=== PATIENT | female | born 1930 | race African-American/Black ===

== ENCOUNTER 2016-11-17 18:30 | Inpatient (IN) | payer MEDICARE, MEDICAID ==
[~2016-11-17] VITALS: Ht 160 cm; Wt 49.9 kg
[~2016-11-17 18:30] MED LIST: AMLO1CAP2 PO; ASPI-1159 PO; BUDE3CAP8 PO; ESOM40CA PO; MAGN400C PO; MEGE400O PO; TEMA15CA PO
[2016-11-17 20:00] VITALS: BP_SYST 138; BP_DIAS 70; BP_DIAS 77
[2016-11-17] MEDS ORDERED: GUAIFENESIN/CODEINE 100-10MG/5ML UDC PO PRN (20:00)
[2016-11-17] MEDS: POLYETHYLENE GLYCOL 3350 (17GM) 1 DOSE PACK PO SCH (21:00)
[2016-11-17] MEDS ORDERED: CEFTRIAXONE 1 G PREMIX 50 ML IV SCH (22:00)
[2016-11-17] MEDS ORDERED: PHENOL/SODIUM PHENOLATE 1.4% SRPAY 177ML MM PRN (22:00)
[2016-11-17] MEDS: FLUTICASONE PROPIONATE 50MCG/SPRAY BOTTLE BOTHNSTRLS SCH (22:32)
[2016-11-18] MEDS: ACETYLCYSTEINE 100MG/ML 10% VIAL 4ML INH SCH ×2 (00:21→09:30)
[2016-11-18] MEDS: IPRATROPIUM/ALBUTEROL 0.5-3(2.5)MG/3ML NEB HHN SCH ×6 (00:22→19:39)
[2016-11-18] MEDS: TEMAZEPAM 15MG CAPSULE PO PRN (01:16)
[2016-11-18 08:00] VITALS: BP 122/72
[2016-11-18] MEDS ORDERED: FAMOTIDINE 20MG/2ML VIAL IV SCH (09:00)
[2016-11-18] MEDS ORDERED: SILVER SULFADIAZINE 1% CREAM 25GM TOP SCH (09:00)
[2016-11-18] MEDS: DOCUSATE SODIUM 100MG CAPSULE PO SCH ×2 (09:19→17:13)
[2016-11-18] MEDS: BENAZEPRIL 20MG TABLET PO SCH (09:20)
[2016-11-18] MEDS: ASPIRIN 81MG EC TABLET PO SCH (09:20)
[2016-11-18] MEDS: AMLODIPINE 10MG TABLET PO SCH (09:20)
[2016-11-18] MEDS: MAGNESIUM OXIDE 400MG TABLET PO SCH ×2 (09:20→17:13)
[2016-11-18] MEDS: ENOXAPARIN 30MG/0.3ML SYR SUBCUT SCH (09:21)
[2016-11-18] MEDS: PREDNISONE 5MG TABLET PO SCH (09:21)
[2016-11-18] MEDS: NICOTINE 14MG PATCH TD SCH (09:22)
[2016-11-18] MEDS ORDERED: MAGNESIUM/ALUMINUM HYDROXIDE/SIMETHICONE 30ML UDC PO PRN (09:30)
[2016-11-18] MEDS: HYDROCODONE/ACETAMINOPHEN 5/325MG TABLET PO PRN ×2 (10:18→20:10)
[2016-11-18] MEDS: FLUTICASONE PROPIONATE 50MCG/SPRAY BOTTLE BOTHNSTRLS SCH ×2 (10:54→20:11)
[2016-11-18] MEDS: LEVOFLOXACIN 250MG TABLET PO SCH (10:59)
[2016-11-18] MEDS: PANTOPRAZOLE 40MG DR TABLET PO SCH (12:08)
[2016-11-18] MEDS: BUDESONIDE 3 MG PO SCH ×2 (12:08→20:12)
[2016-11-18 20:00] VITALS: BP 138/70
[2016-11-18] MEDS ORDERED: PANTOPRAZOLE 40MG DR TABLET PO SCH (21:00)
[2016-11-19] MEDS: IPRATROPIUM/ALBUTEROL 0.5-3(2.5)MG/3ML NEB HHN SCH ×5 (04:24→16:16)
[2016-11-19] MEDS: BUDESONIDE 3 MG PO SCH ×2 (06:15→17:25)
[2016-11-19] MEDS: POLYETHYLENE GLYCOL 3350 (17GM) 1 DOSE PACK PO SCH ×2 (06:16→22:18)
[2016-11-19] MEDS: PANTOPRAZOLE 40MG DR TABLET PO SCH (06:16)
[2016-11-19 07:07] LABS: BASOPHILS % 0.6 % (0.0-2.0); EOSINOPHILS % 1.1 % (0.0-5.0); HEMATOCRIT. 39.6 % (36.0-48.0); HEMOGLOBIN. 13.4 g/dL (12.0-16.0); LYMPHOCYTES % 20.5 % (20.0-50.0); MEAN CORPUSCULAR HEMOGLOBIN 29.3 pg (28.0-32.0); MEAN CORPUSCULAR VOLUME 86.6 fL (81.0-99.0); MEAN PLATELET VOLUME 7.6 fl (7.4-10.4); MONOCYTES % 11.3 % (2.0-8.0); NEUTROPHILS % 66.5 % (40.0-76.0); PLATELET 229 x1000/uL (130-400); RED BLOOD CELL COUNT 4.58 mill/uL (4.2-5.4); RED CELL DISTRIBUTION WIDTH 14.8 % (11.6-14.6)
[2016-11-19] MEDS: ACETYLCYSTEINE 100MG/ML 10% VIAL 4ML INH SCH ×3 (07:27→16:16)
[2016-11-19 08:00] VITALS: BP 118/73
[2016-11-19] MEDS ORDERED: MAGNESIUM/ALUMINUM HYDROXIDE/SIMETHICONE 30ML UDC PO NR (08:15)
[2016-11-19] MEDS ORDERED: MAGNESIUM/ALUMINUM HYDROXIDE/SIMETHICONE 30ML UDC PO PRN (08:15)
[2016-11-19] MEDS: BENAZEPRIL 20MG TABLET PO SCH (08:19)
[2016-11-19] MEDS: AMLODIPINE 10MG TABLET PO SCH (08:20)
[2016-11-19] MEDS: PREDNISONE 5MG TABLET PO SCH (08:20)
[2016-11-19] MEDS: MAGNESIUM OXIDE 400MG TABLET PO SCH ×2 (08:20→17:25)
[2016-11-19] MEDS: ASPIRIN 81MG EC TABLET PO SCH (08:20)
[2016-11-19] MEDS: DOCUSATE SODIUM 100MG CAPSULE PO SCH ×2 (08:20→17:00)
[2016-11-19] MEDS: ENOXAPARIN 30MG/0.3ML SYR SUBCUT SCH (08:21)
[2016-11-19] MEDS: NICOTINE 14MG PATCH TD SCH (08:22)
[2016-11-19] MEDS: FLUTICASONE PROPIONATE 50MCG/SPRAY BOTTLE BOTHNSTRLS SCH ×2 (08:51→22:19)
[2016-11-19] MEDS: LIDOCAINE 5% PATCH TOP SCH ×2 (08:52→08:53)
[2016-11-19] MEDS: HYDROCODONE/ACETAMINOPHEN 5/325MG TABLET PO PRN (08:54)
[2016-11-19] MEDS ORDERED: LEVOFLOXACIN 250MG TABLET PO SCH (11:00)
[2016-11-19] MEDS: LEVOFLOXACIN 250MG TABLET PO SCH (11:38)
[2016-11-19] MEDS ORDERED: HYDROCODONE/ACETAMINOPHEN 5/325MG TABLET PO PRN (12:00)
[2016-11-19] MEDS ORDERED: MORPHINE SULFATE 2 MG/ML CPJ (NOT FOR IM USE) IV PRN (12:15)
[2016-11-19] MEDS ORDERED: MORPHINE SULFATE 2 MG/ML CPJ (NOT FOR IM USE) SQ PRN ×2 (12:45→16:15)
[2016-11-19] MEDS ORDERED: GUAIFENESIN/CODEINE 100-10MG/5ML UDC PO PRN (14:00)
[2016-11-19 20:00] VITALS: BP 153/91
[2016-11-19] MEDS: TEMAZEPAM 15MG CAPSULE PO PRN (23:05)
[2016-11-20] MEDS: ACETYLCYSTEINE 100MG/ML 10% VIAL 4ML INH SCH ×3 (00:56→17:15)
[2016-11-20] MEDS: IPRATROPIUM/ALBUTEROL 0.5-3(2.5)MG/3ML NEB HHN SCH ×5 (00:58→20:50)
[2016-11-20] MEDS: PANTOPRAZOLE 40MG DR TABLET PO SCH (05:52)
[2016-11-20] MEDS: BUDESONIDE 3 MG PO SCH ×2 (05:53→17:07)
[2016-11-20 08:00] VITALS: BP 132/71
[2016-11-20] MEDS: PREDNISONE 5MG TABLET PO SCH (08:15)
[2016-11-20] MEDS: BENAZEPRIL 20MG TABLET PO SCH (08:15)
[2016-11-20] MEDS: DOCUSATE SODIUM 100MG CAPSULE PO SCH ×3 (08:15→17:00)
[2016-11-20] MEDS: MAGNESIUM OXIDE 400MG TABLET PO SCH ×2 (08:16→17:04)
[2016-11-20] MEDS: AMLODIPINE 10MG TABLET PO SCH (08:16)
[2016-11-20] MEDS: ASPIRIN 81MG EC TABLET PO SCH (08:16)
[2016-11-20] MEDS: HYDROCODONE/ACETAMINOPHEN 5/325MG TABLET PO PRN ×2 (08:17→17:05)
[2016-11-20] MEDS: LIDOCAINE 5% PATCH TOP SCH ×2 (08:18)
[2016-11-20] MEDS: SILVER SULFADIAZINE 1% CREAM 50GM TOP SCH (08:19)
[2016-11-20] MEDS: FLUTICASONE PROPIONATE 50MCG/SPRAY BOTTLE BOTHNSTRLS SCH ×2 (08:19→20:42)
[2016-11-20] MEDS: NICOTINE 14MG PATCH TD SCH ×2 (08:19→08:34)
[2016-11-20] MEDS: ENOXAPARIN 30MG/0.3ML SYR SUBCUT SCH (08:20)
[2016-11-20] MEDS: LEVOFLOXACIN 250MG TABLET PO SCH (11:18)
[2016-11-20] MEDS: IPRATROPIUM/ALBUTEROL 0.5-3(2.5)MG/3ML NEB HHN PRN ×2 (17:15→20:56)
[2016-11-20 20:00] VITALS: BP 149/93
[2016-11-20] MEDS: POLYETHYLENE GLYCOL 3350 (17GM) 1 DOSE PACK PO SCH (20:45)
[2016-11-20] MEDS: TEMAZEPAM 15MG CAPSULE PO PRN (23:08)
[2016-11-21] MEDS: IPRATROPIUM/ALBUTEROL 0.5-3(2.5)MG/3ML NEB HHN SCH ×4 (00:19→20:48)
[2016-11-21] MEDS: ACETYLCYSTEINE 100MG/ML 10% VIAL 4ML INH SCH ×3 (00:19→13:21)
[2016-11-21] MEDS: BUDESONIDE 3 MG PO SCH ×2 (05:58→17:08)
[2016-11-21] MEDS: PANTOPRAZOLE 40MG DR TABLET PO SCH (06:00)
[2016-11-21] MEDS: HYDROCODONE/ACETAMINOPHEN 5/325MG TABLET PO PRN ×2 (06:01→14:02)
[2016-11-21 08:00] VITALS: BP 123/70
[2016-11-21] MEDS: DOCUSATE SODIUM 100MG CAPSULE PO SCH ×2 (08:22→17:08)
[2016-11-21] MEDS: ASPIRIN 81MG EC TABLET PO SCH (08:22)
[2016-11-21] MEDS: BENAZEPRIL 20MG TABLET PO SCH (08:22)
[2016-11-21] MEDS: MAGNESIUM OXIDE 400MG TABLET PO SCH ×2 (08:22→17:08)
[2016-11-21] MEDS: AMLODIPINE 10MG TABLET PO SCH (08:23)
[2016-11-21] MEDS: FLUTICASONE PROPIONATE 50MCG/SPRAY BOTTLE BOTHNSTRLS SCH ×2 (08:23→21:14)
[2016-11-21] MEDS: ENOXAPARIN 30MG/0.3ML SYR SUBCUT SCH (08:23)
[2016-11-21] MEDS: LIDOCAINE 5% PATCH TOP SCH ×2 (08:24)
[2016-11-21] MEDS: NICOTINE 14MG PATCH TD SCH (09:00)
[2016-11-21] MEDS: DULOXETINE HCL 20MG DR CAPSULE PO SCH (11:29)
[2016-11-21] MEDS: SILVER SULFADIAZINE 1% CREAM 50GM TOP SCH (11:29)
[2016-11-21] MEDS: LEVOFLOXACIN 250MG TABLET PO SCH (11:29)
[2016-11-21 20:00] VITALS: BP 118/59
[2016-11-21] MEDS: POLYETHYLENE GLYCOL 3350 (17GM) 1 DOSE PACK PO SCH (21:00)
[2016-11-21] MEDS: TEMAZEPAM 15MG CAPSULE PO PRN (23:18)
[2016-11-22] MEDS: IPRATROPIUM/ALBUTEROL 0.5-3(2.5)MG/3ML NEB HHN SCH ×5 (01:06→20:51)
[2016-11-22] MEDS: ACETYLCYSTEINE 100MG/ML 10% VIAL 4ML INH SCH ×4 (01:06→20:54)
[2016-11-22] MEDS: BUDESONIDE 3 MG PO SCH ×2 (06:00→18:00)
[2016-11-22] MEDS: PANTOPRAZOLE 40MG DR TABLET PO SCH (06:26)
[2016-11-22 08:00] VITALS: BP 127/63
[2016-11-22] MEDS: HYDROCODONE/ACETAMINOPHEN 5/325MG TABLET PO PRN ×2 (08:57→19:36)
[2016-11-22] MEDS: DOCUSATE SODIUM 100MG CAPSULE PO SCH ×2 (08:57→17:00)
[2016-11-22] MEDS: DULOXETINE HCL 20MG DR CAPSULE PO SCH ×2 (08:57→09:00)
[2016-11-22] MEDS: MAGNESIUM OXIDE 400MG TABLET PO SCH ×2 (08:57→18:03)
[2016-11-22] MEDS: ENOXAPARIN 30MG/0.3ML SYR SUBCUT SCH (08:58)
[2016-11-22] MEDS: FLUTICASONE PROPIONATE 50MCG/SPRAY BOTTLE BOTHNSTRLS SCH (08:58)
[2016-11-22] MEDS: ASPIRIN 81MG EC TABLET PO SCH (08:58)
[2016-11-22] MEDS: NICOTINE 14MG PATCH TD SCH ×2 (08:59→09:00)
[2016-11-22] MEDS: LIDOCAINE 5% PATCH TOP SCH ×2 (08:59)
[2016-11-22] MEDS: BENAZEPRIL 20MG TABLET PO SCH (09:00)
[2016-11-22] MEDS: AMLODIPINE 10MG TABLET PO SCH (09:00)
[2016-11-22] MEDS: LEVOFLOXACIN 250MG TABLET PO SCH (11:27)
[2016-11-22] MEDS: SILVER SULFADIAZINE 1% CREAM 50GM TOP SCH (15:37)
[2016-11-22 20:00] VITALS: BP 135/82
[2016-11-22] MEDS: POLYETHYLENE GLYCOL 3350 (17GM) 1 DOSE PACK PO SCH (21:00)
[2016-11-22] MEDS: TEMAZEPAM 15MG CAPSULE PO PRN (23:43)
[2016-11-23] MEDS: IPRATROPIUM/ALBUTEROL 0.5-3(2.5)MG/3ML NEB HHN SCH ×4 (00:58→21:09)
[2016-11-23] MEDS: PANTOPRAZOLE 40MG DR TABLET PO SCH (05:57)
[2016-11-23] MEDS: BUDESONIDE 3 MG PO SCH ×2 (06:00→18:09)
[2016-11-23] MEDS: HYDROCODONE/ACETAMINOPHEN 5/325MG TABLET PO PRN (06:43)
[2016-11-23 08:00] VITALS: BP 133/55
[2016-11-23] MEDS: DOCUSATE SODIUM 100MG CAPSULE PO SCH ×2 (09:00→17:00)
[2016-11-23] MEDS: NICOTINE 14MG PATCH TD SCH (09:00)
[2016-11-23] MEDS: AMLODIPINE 10MG TABLET PO SCH (09:18)
[2016-11-23] MEDS: LIDOCAINE 5% PATCH TOP SCH ×2 (09:19)
[2016-11-23] MEDS: BENAZEPRIL 20MG TABLET PO SCH (09:19)
[2016-11-23] MEDS: DULOXETINE HCL 20MG DR CAPSULE PO SCH (09:19)
[2016-11-23] MEDS: ASPIRIN 81MG EC TABLET PO SCH (09:19)
[2016-11-23] MEDS: MAGNESIUM OXIDE 400MG TABLET PO SCH ×2 (09:19→18:09)
[2016-11-23] MEDS: ENOXAPARIN 30MG/0.3ML SYR SUBCUT SCH (09:19)
[2016-11-23] MEDS ORDERED: SIMETHICONE 80MG TABLET CHEW PO PRN (11:00)
[2016-11-23] MEDS: LEVOFLOXACIN 250MG TABLET PO SCH (11:14)
[2016-11-23] MEDS: SILVER SULFADIAZINE 1% CREAM 50GM TOP SCH (18:07)
[2016-11-23 20:00] VITALS: BP 94/68
[2016-11-23] MEDS: POLYETHYLENE GLYCOL 3350 (17GM) 1 DOSE PACK PO SCH (22:01)
[2016-11-24] MEDS: IPRATROPIUM/ALBUTEROL 0.5-3(2.5)MG/3ML NEB HHN SCH ×4 (03:22→19:46)
[2016-11-24] MEDS: PANTOPRAZOLE 40MG DR TABLET PO SCH (05:55)
[2016-11-24] MEDS: BUDESONIDE 3 MG PO SCH ×2 (05:55→17:01)
[2016-11-24 07:52] VITALS: BP 150/65
[2016-11-24] MEDS: HYDROCODONE/ACETAMINOPHEN 5/325MG TABLET PO PRN (07:56)
[2016-11-24] MEDS: AMLODIPINE 10MG TABLET PO SCH (08:30)
[2016-11-24] MEDS: BENAZEPRIL 20MG TABLET PO SCH (08:31)
[2016-11-24] MEDS: ASPIRIN 81MG EC TABLET PO SCH (08:31)
[2016-11-24] MEDS: DULOXETINE HCL 20MG DR CAPSULE PO SCH (08:31)
[2016-11-24] MEDS: DOCUSATE SODIUM 100MG CAPSULE PO SCH ×2 (08:31→17:00)
[2016-11-24] MEDS: MAGNESIUM OXIDE 400MG TABLET PO SCH ×2 (08:31→17:00)
[2016-11-24] MEDS: SILVER SULFADIAZINE 1% CREAM 50GM TOP SCH (08:32)
[2016-11-24] MEDS: NICOTINE 14MG PATCH TD SCH (08:32)
[2016-11-24] MEDS: LIDOCAINE 5% PATCH TOP SCH ×2 (08:32)
[2016-11-24] MEDS: ENOXAPARIN 30MG/0.3ML SYR SUBCUT SCH (08:33)
[2016-11-24] MEDS: LEVOFLOXACIN 250MG TABLET PO SCH (11:09)
[2016-11-24 19:00] VITALS: BP 124/76
[2016-11-24] MEDS: POLYETHYLENE GLYCOL 3350 (17GM) 1 DOSE PACK PO SCH (21:44)
[2016-11-24] MEDS: TEMAZEPAM 15MG CAPSULE PO PRN ×2 (23:24)
[2016-11-25] MEDS: IPRATROPIUM/ALBUTEROL 0.5-3(2.5)MG/3ML NEB HHN SCH ×4 (02:16→13:41)
[2016-11-25] MEDS: PANTOPRAZOLE 40MG DR TABLET PO SCH (05:49)
[2016-11-25] MEDS: BUDESONIDE 3 MG PO SCH (05:50)
[2016-11-25] MEDS: HYDROCODONE/ACETAMINOPHEN 5/325MG TABLET PO PRN ×2 (07:32→13:56)
[2016-11-25 07:58] VITALS: BP 109/75
[2016-11-25 08:00] VITALS: BP 144/76
[2016-11-25 08:42] LABS: BG BASE EXCESS -0.6 mmol/L (-2.0-2.0); BG CARBOXYHEMOGLOBIN 0.7 % (0.5-1.5); BG DEOXYHEMOGLOBIN 4.8 % (0.0-5.0); BG HCO3 ACT 21.7 mmol/L (22.0-26.0); BG METHEMOGLOBIN 0.1 % (0.0-1.5); BG OXYGEN SATURATION 95.2 % (92.0-98.5); BG OXYHEMOGLOBIN 94.4 % (94.0-97.0); BG PCO2 29.3 mmHg (35.0-45.0); BG PH 7.487 (7.350-7.450); BG PO2 72.4 mmHg (75.0-100.0); BG SAMPLE SITE RIGHT RADIAL; BG VENT MODE ROOM AIR
[2016-11-25] MEDS: DOCUSATE SODIUM 100MG CAPSULE PO SCH (09:00)
[2016-11-25] MEDS: DULOXETINE HCL 20MG DR CAPSULE PO SCH ×2 (09:00→09:18)
[2016-11-25] MEDS: NICOTINE 14MG PATCH TD SCH (09:00)
[2016-11-25] MEDS: MAGNESIUM OXIDE 400MG TABLET PO SCH (09:16)
[2016-11-25] MEDS: ASPIRIN 81MG EC TABLET PO SCH (09:16)
[2016-11-25] MEDS: BENAZEPRIL 20MG TABLET PO SCH (09:17)
[2016-11-25] MEDS: AMLODIPINE 10MG TABLET PO SCH (09:18)
[2016-11-25] MEDS: LIDOCAINE 5% PATCH TOP SCH ×2 (09:18→09:19)
[2016-11-25] MEDS: SILVER SULFADIAZINE 1% CREAM 50GM TOP SCH (09:19)
[2016-11-25] MEDS: ENOXAPARIN 30MG/0.3ML SYR SUBCUT SCH (09:19)
[2016-11-25 12:35] VITALS: BP 144/76
[2016-11-25 13:56] VITALS: BP 126/78
== END 2016-11-25 14:35 | disposition home or self-care (01) | DRG 190 ==
PROVIDERS: ADMIT Psychiatry & Neurology Neurology; ATTEND Internal Medicine Geriatric Medicine
DX: J44.1 Chronic obstructive pulmonary disease with (acute) exacerbation (principal); J96.00 Acute respiratory failure, unspecified whether with hypoxia or hypercapnia; N17.0 Acute kidney failure with tubular necrosis; E87.2 Acidosis; E44.1 Mild protein-calorie malnutrition; Z68.1 Body mass index [BMI] 19.9 or less, adult; I47.2 Ventricular tachycardia; E87.1 Hypo-osmolality and hyponatremia; K21.9 Gastro-esophageal reflux disease without esophagitis; J44.0 Chronic obstructive pulmonary disease with (acute) lower respiratory infection; I10 Essential (primary) hypertension; I73.9 Peripheral vascular disease, unspecified; K52.9 Noninfective gastroenteritis and colitis, unspecified; F17.210 Nicotine dependence, cigarettes, uncomplicated; E11.9 Type 2 diabetes mellitus without complications; F45.8 Other somatoform disorders; B18.2 Chronic viral hepatitis C; M19.90 Unspecified osteoarthritis, unspecified site; L29.9 Pruritus, unspecified; K59.00 Constipation, unspecified; E11.42 Type 2 diabetes mellitus with diabetic polyneuropathy; F32.9 Major depressive disorder, single episode, unspecified; J20.9 Acute bronchitis, unspecified; M48.06 Spinal stenosis, lumbar region; F41.1 Generalized anxiety disorder; E11.51 Type 2 diabetes mellitus with diabetic peripheral angiopathy without gangrene; M54.12 Radiculopathy, cervical region; G89.4 Chronic pain syndrome; Z87.01 Personal history of pneumonia (recurrent); Z79.82 Long term (current) use of aspirin; Z79.899 Other long term (current) drug therapy; Z88.1 Allergy status to other antibiotic agents
CPT/HCPCS: 36415; 36600; 74000; 80048; 82375; 82805; 85025; 94620; 94640; 97110; 97116; 97162; 97166; 97530; 97535; C1893; J0696; J1650; J2270; J3490; J7512; J7608; J7620

== ENCOUNTER 2018-02-02 21:25 | Inpatient (IN) | payer MEDICARE, MEDICAID ==
[~2018-02-02] VITALS: Ht 160 cm; Wt 46.7 kg
[~2018-02-02 21:25] MED LIST changes: +ARFO15VI2 NEB; +LACT10SO6 MT; +ONDA4TAB5 PO; +PROP10TA10 PO; +TRAZ-212 PO
[2018-02-02] MEDS ORDERED: SODIUM CHLORIDE 0.9% 1,000 ML IV ONE (23:18)
[2018-02-02] MEDS ORDERED: ONDANSETRON HCL 4MG/2ML INJ IV STA (23:18)
[2018-02-02] MEDS ORDERED: KETOROLAC 30MG/ML VIAL IV STA (23:18)
[2018-02-03 01:28] LABS: HEMATOCRIT. 44.8 % (36.0-48.0); HEMOGLOBIN. 15.1 g/dL (12.0-16.0); MEAN CORPUSCULAR HEMOGLOBIN 29.2 pg (28.0-32.0); MEAN CORPUSCULAR VOLUME 86.8 fL (81.0-99.0); MEAN PLATELET VOLUME 8.7 fl (7.4-10.4); PLATELET 208 x1000/uL (130-400); RED BLOOD CELL COUNT 5.16 mill/uL (4.2-5.4); RED CELL DISTRIBUTION WIDTH 14.4 % (11.6-14.6)
[2018-02-03 01:30] LABS: CHLORIDE 105 mEq/L (98-107)
[2018-02-03] MEDS ORDERED: MORPHINE SULFATE 2 MG/ML CPJ (NOT FOR IM USE) IV ONE (01:30)
[2018-02-03 01:41] LABS: CREATINE KINASE 95 IU/L (26-192)
[2018-02-03 03:54] VITALS: BP 154/56
[2018-02-03 04:00] VITALS: BP 154/56
[2018-02-03 04:14] LABS: PLATELET ESTIMATE NORMAL
[2018-02-03] MEDS ORDERED: IPRATROPIUM/ALBUTEROL 0.5-3(2.5)MG/3ML NEB HHN PRN (04:45)
[2018-02-03] MEDS ORDERED: ACETAMINOPHEN 325MG TABLET PO PRN (04:45)
[2018-02-03] MEDS ORDERED: HYDROCODONE/ACETAMINOPHEN 10/325MG TABLET PO PRN (04:45)
[2018-02-03 08:00] VITALS: BP 146/69
[2018-02-03] MEDS: ENOXAPARIN 30MG/0.3ML SYR SUBCUT SCH (09:21)
[2018-02-03] MEDS: HYDROMORPHONE HCL/PF 2MG/ML CPJ IV PRN ×3 (09:22→21:53)
[2018-02-03 11:17] LABS: BASOPHILS % 0.2 % (0.0-2.0); EOSINOPHILS % 1.5 % (0.0-5.0); HEMATOCRIT. 43.3 % (36.0-48.0); HEMOGLOBIN. 14.4 g/dL (12.0-16.0); LYMPHOCYTES % 37.7 % (20.0-50.0); MEAN CORPUSCULAR HEMOGLOBIN 29.1 pg (28.0-32.0); MEAN CORPUSCULAR VOLUME 87.5 fL (81.0-99.0); MEAN PLATELET VOLUME 8.6 fl (7.4-10.4); MONOCYTES % 10.1 % (2.0-8.0); NEUTROPHILS % 50.5 % (40.0-76.0); PLATELET 201 x1000/uL (130-400); RED BLOOD CELL COUNT 4.94 mill/uL (4.2-5.4); RED CELL DISTRIBUTION WIDTH 14.5 % (11.6-14.6)
[2018-02-03] MEDS: PREGABALIN 25MG CAPSULE PO SCH ×2 (12:33→21:00)
[2018-02-03] MEDS ORDERED: BENAZEPRIL 10MG TABLET PO NR (12:45)
[2018-02-03] MEDS ORDERED: NON FORMULARY PATIENT HOME MED EA XX SCH (12:45)
[2018-02-03] MEDS ORDERED: AMLODIPINE 5MG TABLET PO NR (12:45)
[2018-02-03] MEDS ORDERED: DOCUSATE SODIUM 250MG CAPSULE PO NR (12:45)
[2018-02-03 16:00] VITALS: BP 142/63
[2018-02-03 20:00] VITALS: BP 126/61
[2018-02-03] MEDS ORDERED: LACTULOSE 20G/30ML UDC PO PRN (21:00)
[2018-02-03] MEDS: BUDESONIDE 3MG CAPSULES PO SCH (21:55)
[2018-02-04] VITALS: BP 133/68
[2018-02-04 04:00] VITALS: BP 144/66
[2018-02-04] MEDS: HYDROMORPHONE HCL/PF 2MG/ML CPJ IV PRN ×4 (05:59→22:19)
[2018-02-04 06:41] LABS: CHLORIDE 103 mEq/L (98-107)
[2018-02-04 06:52] LABS: BASOPHILS % 1.1 % (0.0-2.0); EOSINOPHILS % 1.3 % (0.0-5.0); HEMATOCRIT. 38.7 % (36.0-48.0); HEMOGLOBIN. 13.2 g/dL (12.0-16.0); LYMPHOCYTES % 40.5 % (20.0-50.0); MEAN CORPUSCULAR HEMOGLOBIN 29.6 pg (28.0-32.0); MEAN CORPUSCULAR VOLUME 86.7 fL (81.0-99.0); MONOCYTES % 14.7 % (2.0-8.0); NEUTROPHILS % 42.4 % (40.0-76.0); PLATELET 198 x1000/uL (130-400); RED BLOOD CELL COUNT 4.47 mill/uL (4.2-5.4); RED CELL DISTRIBUTION WIDTH 14.6 % (11.6-14.6)
[2018-02-04 08:00] VITALS: BP 114/67
[2018-02-04] MEDS: BUDESONIDE 3MG CAPSULES PO SCH (09:35)
[2018-02-04] MEDS: DOCUSATE SODIUM 250MG CAPSULE PO SCH (09:36)
[2018-02-04] MEDS: PREGABALIN 25MG CAPSULE PO SCH ×2 (09:36→20:24)
[2018-02-04] MEDS: BENAZEPRIL 10MG TABLET PO SCH (09:37)
[2018-02-04] MEDS: AMLODIPINE 5MG TABLET PO SCH (09:37)
[2018-02-04] MEDS: ENOXAPARIN 30MG/0.3ML SYR SUBCUT SCH (09:38)
[2018-02-04] MEDS: POTASSIUM CHLORIDE 20MEQ TABLET SR PO SCH (11:58)
[2018-02-04 12:00] VITALS: BP 113/54
[2018-02-04] MEDS: LIDOCAINE 5% PATCH TOP SCH (14:45)
[2018-02-04 16:00] VITALS: BP 136/60
[2018-02-04] MEDS: PREDNISONE 20MG TABLET PO SCH (17:44)
[2018-02-04 20:00] VITALS: BP 141/66
[2018-02-05] VITALS: BP 149/71
[2018-02-05 04:00] VITALS: BP 130/65
[2018-02-05] MEDS: HYDROMORPHONE HCL/PF 2MG/ML CPJ IV PRN ×3 (04:47→16:38)
[2018-02-05 08:00] VITALS: BP 166/76
[2018-02-05] MEDS ORDERED: PREGABALIN 25MG CAPSULE PO SCH (09:00)
[2018-02-05] MEDS: ENOXAPARIN 30MG/0.3ML SYR SUBCUT SCH (09:01)
[2018-02-05] MEDS: POTASSIUM CHLORIDE 20MEQ TABLET SR PO SCH (09:02)
[2018-02-05] MEDS: DOCUSATE SODIUM 250MG CAPSULE PO SCH (09:02)
[2018-02-05] MEDS: PREDNISONE 20MG TABLET PO SCH (09:04)
[2018-02-05] MEDS: AMLODIPINE 5MG TABLET PO SCH (09:04)
[2018-02-05] MEDS: BENAZEPRIL 10MG TABLET PO SCH (09:05)
[2018-02-05] MEDS: LIDOCAINE 5% PATCH TOP SCH (09:06)
[2018-02-05 11:02] VITALS: BP_SYST 165; BP_SYST 166; BP_DIAS 76; BP_DIAS 81
[2018-02-05 16:38] VITALS: BP 165/81
[2018-02-05] MEDS ORDERED: ATORVASTATIN CALCIUM 10MG TABLET PO SCH (21:00)
== END 2018-02-05 18:07 | DRG 552 ==
LOC: ER 21:25 → 6EST 02-03 01:55 → EDBEDREQTM 02-03 01:58 → EDBEDREQSVC 02-03 01:58 → EDBEDREQ 02-03 01:58 → ENRESERV 02-03 02:13
PROVIDERS: ADMIT Internal Medicine Geriatric Medicine; ATTEND Internal Medicine Geriatric Medicine
DX: M50.10 Cervical disc disorder with radiculopathy, unspecified cervical region (principal); M87.188 Osteonecrosis due to drugs, other site; M47.26 Other spondylosis with radiculopathy, lumbar region; I10 Essential (primary) hypertension; M51.16 Intervertebral disc disorders with radiculopathy, lumbar region; J44.9 Chronic obstructive pulmonary disease, unspecified; F41.9 Anxiety disorder, unspecified; K57.90 Diverticulosis of intestine, part unspecified, without perforation or abscess without bleeding; M48.061 Spinal stenosis, lumbar region without neurogenic claudication; G89.29 Other chronic pain; K58.9 Irritable bowel syndrome, unspecified; F32.9 Major depressive disorder, single episode, unspecified; R00.1 Bradycardia, unspecified; M17.12 Unilateral primary osteoarthritis, left knee; F17.210 Nicotine dependence, cigarettes, uncomplicated; T38.0X5A Adverse effect of glucocorticoids and synthetic analogues, initial encounter; M51.27 Other intervertebral disc displacement, lumbosacral region; Y92.89 Other specified places as the place of occurrence of the external cause; Z80.6 Family history of leukemia; Z82.0 Family history of epilepsy and other diseases of the nervous system; Z98.51 Tubal ligation status; Z90.710 Acquired absence of both cervix and uterus; Z88.1 Allergy status to other antibiotic agents; Z79.899 Other long term (current) drug therapy; Z79.82 Long term (current) use of aspirin; Z71.6 Tobacco abuse counseling
CPT/HCPCS: 36415; 71045; 72100; 72141; 72148; 73502; 73551; 73560; 76700; 80048; 82550; 83605; 84484; 93005; 93970; 96361; 96372; 96374; 96375; 97110; 97116; 97162; 99285; J1170; J1650; J1885; J2270; J2405; J7030; J7512

== ENCOUNTER 2018-02-05 18:10 | Inpatient (IN) | payer MEDICARE, MEDICAID ==
[~2018-02-05] VITALS: Ht 160 cm; Wt 46.7 kg
[2018-02-05 19:45] VITALS: BP 129/67
[2018-02-05] MEDS ORDERED: IPRATROPIUM/ALBUTEROL 0.5-3(2.5)MG/3ML NEB HHN PRN (19:45)
[2018-02-05] MEDS ORDERED: HYDROMORPHONE HCL/PF 2MG/ML CPJ IV PRN (19:45)
[2018-02-05] MEDS ORDERED: ACETAMINOPHEN 325MG TABLET PO PRN (19:45)
[2018-02-05] MEDS: HYDROMORPHONE HCL/PF 2MG/ML CPJ IM PRN (20:18)
[2018-02-05] MEDS: PREGABALIN 25MG CAPSULE PO SCH (20:56)
[2018-02-05] MEDS: ATORVASTATIN CALCIUM 10MG TABLET PO SCH (20:56)
[2018-02-05] MEDS: BUDESONIDE 3 MG PO SCH (20:57)
[2018-02-06] MEDS: HYDROMORPHONE HCL/PF 2MG/ML CPJ IM PRN ×3 (03:57→17:56)
[2018-02-06 06:49] LABS: BASOPHILS % 0.7 % (0.0-2.0); HEMATOCRIT. 43.7 % (36.0-48.0); HEMOGLOBIN. 14.6 g/dL (12.0-16.0); LYMPHOCYTES % 13.6 % (20.0-50.0); MEAN CORPUSCULAR HEMOGLOBIN 29.2 pg (28.0-32.0); MEAN CORPUSCULAR VOLUME 87.5 fL (81.0-99.0); MEAN PLATELET VOLUME 8.6 fl (7.4-10.4); NEUTROPHILS % 80.7 % (40.0-76.0); PLATELET 213 x1000/uL (130-400); RED BLOOD CELL COUNT 4.99 mill/uL (4.2-5.4); RED CELL DISTRIBUTION WIDTH 14.6 % (11.6-14.6)
[2018-02-06 07:44] LABS: CHLORIDE 102 mEq/L (98-107)
[2018-02-06 08:02] VITALS: BP 142/66
[2018-02-06] MEDS: BENAZEPRIL 10MG TABLET PO SCH (08:42)
[2018-02-06] MEDS: PREGABALIN 25MG CAPSULE PO SCH (08:42)
[2018-02-06] MEDS: DOCUSATE SODIUM 250MG CAPSULE PO SCH (08:42)
[2018-02-06] MEDS: AMLODIPINE 5MG TABLET PO SCH (08:42)
[2018-02-06] MEDS: LIDOCAINE 5% PATCH TOP SCH (08:44)
[2018-02-06] MEDS: ENOXAPARIN 30MG/0.3ML SYR SUBCUT SCH (08:45)
[2018-02-06] MEDS: BUDESONIDE 3 MG PO SCH (08:59)
[2018-02-06] MEDS ORDERED: PREDNISONE 20MG TABLET PO SCH (09:00)
[2018-02-06] MEDS ORDERED: POTASSIUM CHLORIDE 20MEQ TABLET SR PO SCH (09:00)
[2018-02-06] MEDS: HYDROMORPHONE HCL 2MG TABLET PO PRN (17:00)
[2018-02-06 20:35] VITALS: BP 153/67
[2018-02-06] MEDS: ATORVASTATIN CALCIUM 10MG TABLET PO SCH (21:08)
[2018-02-06] MEDS: PREGABALIN 50 MG CAPSULE PO SCH (21:09)
[2018-02-06] MEDS: HYDROCODONE/ACETAMINOPHEN 10/325MG TABLET PO PRN (21:09)
[2018-02-07] MEDS: HYDROMORPHONE HCL/PF 2MG/ML CPJ IM PRN (00:47)
[2018-02-07] MEDS: HYDROCODONE/ACETAMINOPHEN 10/325MG TABLET PO PRN ×3 (05:58→21:13)
[2018-02-07 08:00] VITALS: BP_SYST 143; BP_SYST 144; BP_DIAS 71; BP_DIAS 78
[2018-02-07] MEDS: DOCUSATE SODIUM 250MG CAPSULE PO SCH (09:00)
[2018-02-07] MEDS: BUDESONIDE 3 MG PO SCH (09:17)
[2018-02-07] MEDS: BENAZEPRIL 10MG TABLET PO SCH (09:18)
[2018-02-07] MEDS: PREGABALIN 50 MG CAPSULE PO SCH ×2 (09:18→21:12)
[2018-02-07] MEDS: AMLODIPINE 5MG TABLET PO SCH (09:19)
[2018-02-07] MEDS: TRAMADOL 50MG TABLET PO SCH ×2 (09:19→17:17)
[2018-02-07] MEDS: ENOXAPARIN 30MG/0.3ML SYR SUBCUT SCH (09:19)
[2018-02-07] MEDS: LIDOCAINE 5% PATCH TOP SCH (09:20)
[2018-02-07 20:00] VITALS: BP 134/60
[2018-02-07] MEDS: ATORVASTATIN CALCIUM 10MG TABLET PO SCH (21:12)
[2018-02-08] MEDS: TRAMADOL 50MG TABLET PO SCH ×3 (02:07→17:09)
[2018-02-08] MEDS: HYDROCODONE/ACETAMINOPHEN 10/325MG TABLET PO PRN (06:13)
[2018-02-08 06:54] LABS: BASOPHILS % 0.8 % (0.0-2.0); EOSINOPHILS % 0.5 % (0.0-5.0); HEMATOCRIT. 44.8 % (36.0-48.0); HEMOGLOBIN. 15.2 g/dL (12.0-16.0); LYMPHOCYTES % 29.1 % (20.0-50.0); MEAN CORPUSCULAR HEMOGLOBIN 29.8 pg (28.0-32.0); MEAN PLATELET VOLUME 8.8 fl (7.4-10.4); MONOCYTES % 10.6 % (2.0-8.0); PLATELET 213 x1000/uL (130-400); RED BLOOD CELL COUNT 5.09 mill/uL (4.2-5.4); RED CELL DISTRIBUTION WIDTH 14.6 % (11.6-14.6)
[2018-02-08 07:49] VITALS: BP 136/76
[2018-02-08] MEDS: BUDESONIDE 3 MG PO SCH (08:36)
[2018-02-08] MEDS: ENOXAPARIN 30MG/0.3ML SYR SUBCUT SCH (08:37)
[2018-02-08] MEDS: PREGABALIN 50 MG CAPSULE PO SCH ×2 (08:37→20:46)
[2018-02-08] MEDS: DOCUSATE SODIUM 250MG CAPSULE PO SCH (08:37)
[2018-02-08] MEDS: AMLODIPINE 5MG TABLET PO SCH (08:38)
[2018-02-08] MEDS: BENAZEPRIL 10MG TABLET PO SCH (08:38)
[2018-02-08] MEDS: LIDOCAINE 5% PATCH TOP SCH ×2 (08:39→09:35)
[2018-02-08] MEDS: CALCIUM CARBONATE 1250MG TABLET (500MG ELEMENTAL CALCIUM) PO SCH ×2 (08:43→17:08)
[2018-02-08] MEDS: FAMOTIDINE 20MG TABLET PO SCH (09:31)
[2018-02-08] MEDS: CHOLECALCIFEROL (D3) 1000 UNIT TABLET PO SCH (09:31)
[2018-02-08 09:52] LABS: CHLORIDE 99 mEq/L (98-107)
[2018-02-08] MEDS ORDERED: ALENDRONATE SODIUM 35MG TABLET PO SCH (10:00)
[2018-02-08 10:18] LABS: PHOSPHORUS 3.8 mg/dL (2.5-4.9)
[2018-02-08 10:45] VITALS: BP 122/65
[2018-02-08] MEDS: HYDROMORPHONE HCL/PF 2MG/ML CPJ IM PRN (11:00)
[2018-02-08] MEDS: IPRATROPIUM/ALBUTEROL 0.5-3(2.5)MG/3ML NEB HHN SCH ×3 (12:18→21:07)
[2018-02-08] MEDS: LACTULOSE 20G/30ML UDC PO PRN (15:49)
[2018-02-08 17:00] VITALS: BP 142/64
[2018-02-08 20:00] VITALS: BP_SYST 113; BP_SYST 96; BP_DIAS 36; BP_DIAS 55
[2018-02-08] MEDS: ATORVASTATIN CALCIUM 10MG TABLET PO SCH (20:46)
[2018-02-09] MEDS: IPRATROPIUM/ALBUTEROL 0.5-3(2.5)MG/3ML NEB HHN SCH ×7 (01:27→23:58)
[2018-02-09] MEDS: TRAMADOL 50MG TABLET PO SCH ×3 (01:51→17:51)
[2018-02-09] MEDS: HYDROMORPHONE HCL 2MG TABLET PO PRN (06:49)
[2018-02-09 08:00] VITALS: BP 140/64
[2018-02-09] MEDS: DOCUSATE SODIUM 250MG CAPSULE PO SCH (09:09)
[2018-02-09] MEDS: CHOLECALCIFEROL (D3) 1000 UNIT TABLET PO SCH (09:09)
[2018-02-09] MEDS: PREGABALIN 50 MG CAPSULE PO SCH ×2 (09:09→21:44)
[2018-02-09] MEDS: CALCIUM CARBONATE 1250MG TABLET (500MG ELEMENTAL CALCIUM) PO SCH ×2 (09:09→17:50)
[2018-02-09] MEDS: BENAZEPRIL 10MG TABLET PO SCH (09:09)
[2018-02-09] MEDS: FAMOTIDINE 20MG TABLET PO SCH (09:09)
[2018-02-09] MEDS: AMLODIPINE 5MG TABLET PO SCH (09:10)
[2018-02-09] MEDS: ENOXAPARIN 30MG/0.3ML SYR SUBCUT SCH (09:10)
[2018-02-09] MEDS: BUDESONIDE 3 MG PO SCH (09:11)
[2018-02-09] MEDS: LIDOCAINE 5% PATCH TOP SCH (09:13)
[2018-02-09 10:15] VITALS: BP 118/56
[2018-02-09 13:30] VITALS: BP 138/76
[2018-02-09] MEDS: HYDROMORPHONE HCL/PF 2MG/ML CPJ IM PRN (13:41)
[2018-02-09 17:00] VITALS: BP 148/62
[2018-02-09 20:00] VITALS: BP 158/65
[2018-02-09] MEDS: ATORVASTATIN CALCIUM 10MG TABLET PO SCH (21:44)
[2018-02-10] MEDS: TRAMADOL 50MG TABLET PO SCH ×3 (02:12→17:52)
[2018-02-10] MEDS: IPRATROPIUM/ALBUTEROL 0.5-3(2.5)MG/3ML NEB HHN SCH ×5 (04:30→21:04)
[2018-02-10] MEDS: HYDROCODONE/ACETAMINOPHEN 10/325MG TABLET PO PRN ×2 (06:27→17:49)
[2018-02-10 07:17] LABS: HEMOGLOBIN. 13.2 g/dL (12.0-16.0); MEAN CORPUSCULAR HEMOGLOBIN 29.7 pg (28.0-32.0); MEAN CORPUSCULAR VOLUME 87.5 fL (81.0-99.0); MEAN PLATELET VOLUME 8.6 fl (7.4-10.4); PLATELET 194 x1000/uL (130-400); RED BLOOD CELL COUNT 4.46 mill/uL (4.2-5.4); RED CELL DISTRIBUTION WIDTH 14.6 % (11.6-14.6)
[2018-02-10 07:58] LABS: CHLORIDE 100 mEq/L (98-107)
[2018-02-10 08:07] VITALS: BP 128/60
[2018-02-10] MEDS: CALCIUM CARBONATE 1250MG TABLET (500MG ELEMENTAL CALCIUM) PO SCH ×2 (09:47→17:48)
[2018-02-10] MEDS: ENOXAPARIN 30MG/0.3ML SYR SUBCUT SCH (09:47)
[2018-02-10] MEDS: FAMOTIDINE 20MG TABLET PO SCH (09:47)
[2018-02-10] MEDS: PREGABALIN 50 MG CAPSULE PO SCH ×2 (09:47→23:23)
[2018-02-10] MEDS: DOCUSATE SODIUM 250MG CAPSULE PO SCH (09:47)
[2018-02-10] MEDS: CHOLECALCIFEROL (D3) 1000 UNIT TABLET PO SCH (09:47)
[2018-02-10] MEDS: LIDOCAINE 5% PATCH TOP SCH (09:48)
[2018-02-10] MEDS: BENAZEPRIL 10MG TABLET PO SCH (09:50)
[2018-02-10] MEDS: BUDESONIDE 3 MG PO SCH (09:50)
[2018-02-10] MEDS: AMLODIPINE 5MG TABLET PO SCH (09:50)
[2018-02-10 11:28] LABS: PLATELET ESTIMATE NORMAL
[2018-02-10 20:00] VITALS: BP_SYST 128; BP_SYST 131; BP_DIAS 58; BP_DIAS 63
[2018-02-10] MEDS: ATORVASTATIN CALCIUM 10MG TABLET PO SCH (23:23)
[2018-02-10] MEDS: HYDROMORPHONE HCL 2MG TABLET PO PRN (23:25)
[2018-02-11] MEDS: IPRATROPIUM/ALBUTEROL 0.5-3(2.5)MG/3ML NEB HHN SCH ×6 (00:09→21:07)
[2018-02-11] MEDS: TRAMADOL 50MG TABLET PO SCH ×3 (02:55→17:50)
[2018-02-11 06:32] LABS: HEMATOCRIT. 37.4 % (36.0-48.0); HEMOGLOBIN. 12.4 g/dL (12.0-16.0); MEAN CORPUSCULAR VOLUME 87.2 fL (81.0-99.0); PLATELET 188 x1000/uL (130-400); RED BLOOD CELL COUNT 4.29 mill/uL (4.2-5.4); RED CELL DISTRIBUTION WIDTH 14.7 % (11.6-14.6)
[2018-02-11] MEDS: HYDROMORPHONE HCL 2MG TABLET PO PRN (06:45)
[2018-02-11 06:52] LABS: CHLORIDE 99 mEq/L (98-107)
[2018-02-11 08:00] VITALS: BP_SYST 116; BP_SYST 128; BP_DIAS 54; BP_DIAS 59
[2018-02-11 09:25] LABS: PLATELET ESTIMATE NORMAL
[2018-02-11] MEDS: ENOXAPARIN 30MG/0.3ML SYR SUBCUT SCH (09:29)
[2018-02-11] MEDS: DOCUSATE SODIUM 250MG CAPSULE PO SCH (09:31)
[2018-02-11] MEDS: BENAZEPRIL 10MG TABLET PO SCH (09:31)
[2018-02-11] MEDS: AMLODIPINE 5MG TABLET PO SCH (09:31)
[2018-02-11] MEDS: PREGABALIN 50 MG CAPSULE PO SCH ×2 (09:31→20:21)
[2018-02-11] MEDS: CALCIUM CARBONATE 1250MG TABLET (500MG ELEMENTAL CALCIUM) PO SCH ×2 (09:31→17:50)
[2018-02-11] MEDS: FAMOTIDINE 20MG TABLET PO SCH (09:31)
[2018-02-11] MEDS: CHOLECALCIFEROL (D3) 1000 UNIT TABLET PO SCH (09:31)
[2018-02-11] MEDS: LIDOCAINE 5% PATCH TOP SCH (09:32)
[2018-02-11] MEDS: HYDROCODONE/ACETAMINOPHEN 10/325MG TABLET PO PRN (15:45)
[2018-02-11 20:00] VITALS: BP_SYST 120; BP_SYST 128; BP_DIAS 66; BP_DIAS 77
[2018-02-11] MEDS: ATORVASTATIN CALCIUM 10MG TABLET PO SCH (20:21)
[2018-02-11] MEDS ORDERED: HYDROMORPHONE HCL 2MG TABLET PO PRN (23:15)
[2018-02-12] MEDS: IPRATROPIUM/ALBUTEROL 0.5-3(2.5)MG/3ML NEB HHN SCH ×6 (00:42→21:07)
[2018-02-12] MEDS: TRAMADOL 50MG TABLET PO SCH ×2 (05:09→10:00)
[2018-02-12] MEDS ORDERED: NITROGLYCERIN 0.4MG TABLET SL SL NR (05:30)
[2018-02-12] MEDS ORDERED: ASPIRIN 81MG TABLET PO NR (05:30)
[2018-02-12] MEDS: LACTULOSE 20G/30ML UDC PO PRN (05:41)
[2018-02-12] MEDS: AMLODIPINE 5MG TABLET PO SCH (05:41)
[2018-02-12] MEDS: HYDROCODONE/ACETAMINOPHEN 10/325MG TABLET PO PRN ×2 (07:34→19:55)
[2018-02-12 07:52] LABS: CREATINE KINASE MB FRACTION 1.4 ng/mL (0.5-3.6)
[2018-02-12 08:00] VITALS: BP 133/64
[2018-02-12] MEDS: CHOLECALCIFEROL (D3) 1000 UNIT TABLET PO SCH (08:58)
[2018-02-12] MEDS: CALCIUM CARBONATE 1250MG TABLET (500MG ELEMENTAL CALCIUM) PO SCH ×2 (08:58→17:21)
[2018-02-12] MEDS: PREGABALIN 50 MG CAPSULE PO SCH ×2 (08:58→21:55)
[2018-02-12] MEDS: DOCUSATE SODIUM 250MG CAPSULE PO SCH (08:58)
[2018-02-12] MEDS: FAMOTIDINE 20MG TABLET PO SCH ×2 (08:58→21:55)
[2018-02-12] MEDS: ENOXAPARIN 30MG/0.3ML SYR SUBCUT SCH (08:59)
[2018-02-12] MEDS: LIDOCAINE 5% PATCH TOP SCH (09:00)
[2018-02-12] MEDS ORDERED: MAGNESIUM/ALUMINUM HYDROXIDE/SIMETHICONE 30ML UDC PO PRN (09:00)
[2018-02-12] MEDS: BENAZEPRIL 10MG TABLET PO SCH (09:00)
[2018-02-12 19:58] VITALS: BP 167/78
[2018-02-12] MEDS: ATORVASTATIN CALCIUM 10MG TABLET PO SCH (21:55)
[2018-02-13] MEDS: IPRATROPIUM/ALBUTEROL 0.5-3(2.5)MG/3ML NEB HHN SCH ×4 (00:41→11:31)
[2018-02-13] MEDS: HYDROCODONE/ACETAMINOPHEN 10/325MG TABLET PO PRN ×2 (04:55→11:14)
[2018-02-13 05:54] LABS: HEMATOCRIT. 39.7 % (36.0-48.0); HEMOGLOBIN. 13.4 g/dL (12.0-16.0); MEAN CORPUSCULAR HEMOGLOBIN 29.4 pg (28.0-32.0); MEAN CORPUSCULAR VOLUME 87.4 fL (81.0-99.0); MEAN PLATELET VOLUME 8.3 fl (7.4-10.4); PLATELET 191 x1000/uL (130-400); RED BLOOD CELL COUNT 4.55 mill/uL (4.2-5.4); RED CELL DISTRIBUTION WIDTH 14.4 % (11.6-14.6)
[2018-02-13 05:57] LABS: CHLORIDE 99 mEq/L (98-107)
[2018-02-13 08:02] VITALS: BP 156/68
[2018-02-13] MEDS: ENOXAPARIN 30MG/0.3ML SYR SUBCUT SCH (09:17)
[2018-02-13] MEDS: CALCIUM CARBONATE 1250MG TABLET (500MG ELEMENTAL CALCIUM) PO SCH (09:19)
[2018-02-13] MEDS: LIDOCAINE 5% PATCH TOP SCH ×2 (09:19→09:27)
[2018-02-13] MEDS: CHOLECALCIFEROL (D3) 1000 UNIT TABLET PO SCH (09:19)
[2018-02-13] MEDS: DOCUSATE SODIUM 250MG CAPSULE PO SCH (09:19)
[2018-02-13] MEDS: AMLODIPINE 5MG TABLET PO SCH (09:20)
[2018-02-13] MEDS: PREGABALIN 50 MG CAPSULE PO SCH (09:20)
[2018-02-13] MEDS: BENAZEPRIL 10MG TABLET PO SCH (09:21)
[2018-02-13] MEDS: FAMOTIDINE 20MG TABLET PO SCH (09:21)
[2018-02-13 13:08] VITALS: BP 150/56
[2018-02-13 13:15] LABS: PLATELET ESTIMATE NORMAL
[2018-02-17] MEDS ORDERED: BUDESONIDE 3 MG PO SCH (09:00)
[2020-02-13] MEDS ORDERED: BUDESONIDE 3 MG PO SCH (09:00)
== END 2018-02-13 14:56 | disposition home health service (06) | DRG 552 ==
PROVIDERS: ADMIT Psychiatry & Neurology Neurology; ATTEND Internal Medicine Geriatric Medicine
DX: M51.17 Intervertebral disc disorders with radiculopathy, lumbosacral region (principal); M50.10 Cervical disc disorder with radiculopathy, unspecified cervical region; I10 Essential (primary) hypertension; J44.9 Chronic obstructive pulmonary disease, unspecified; F17.210 Nicotine dependence, cigarettes, uncomplicated; R26.9 Unspecified abnormalities of gait and mobility; M46.90 Unspecified inflammatory spondylopathy, site unspecified; M47.816 Spondylosis without myelopathy or radiculopathy, lumbar region; G47.00 Insomnia, unspecified; M81.0 Age-related osteoporosis without current pathological fracture; M48.00 Spinal stenosis, site unspecified; Z98.51 Tubal ligation status; Z79.899 Other long term (current) drug therapy; Z88.1 Allergy status to other antibiotic agents; Z99.81 Dependence on supplemental oxygen; Z79.52 Long term (current) use of systemic steroids
CPT/HCPCS: 36415; 74018; 80048; 82553; 83735; 84100; 84484; 93005; 94640; 97110; 97116; 97140; 97162; 97167; 97530; 97535; J1170; J1650; J7512; J7620

== ENCOUNTER 2019-01-24 19:33 | Inpatient (IN) | payer MEDICARE, MEDICAID ==
[~2019-01-24] VITALS: Ht 162.6 cm; Wt 59.9 kg
[~2019-01-24 19:33] MED LIST changes: -ASPI-1159 PO; +ASPI-1393 PO; -TRAZ-212 PO; +TRAZ-251 PO
[2019-01-24] MEDS ORDERED: ALBUTEROL (0.083%) 2.5MG/3ML NEB HHN STA (21:02)
[2019-01-24] MEDS ORDERED: IPRATROPIUM BROMIDE (0.02%) 0.5MG/2.5ML NEB HHN STA (21:02)
[2019-01-24] MEDS ORDERED: PREDNISONE 20MG TABLET PO STA (21:02)
[2019-01-24] MEDS ORDERED: DOXYCYCLINE HYCLATE 100 MG/VIAL IV ONE (21:15)
[2019-01-24] MEDS ORDERED: CEFTRIAXONE 1 G PREMIX 50 ML IV ONE (21:15)
[2019-01-24] MEDS ORDERED: DOXYCYCLINE 100MG in DEXTROSE 5% WATER 100ML IV NR (21:15)
[2019-01-24] MEDS ORDERED: SODIUM CHLORIDE 0.9% 1000ML BAG (SEPSIS BOLUS) IV ONE (21:15)
[2019-01-24 23:49] LABS: HEMATOCRIT. 45.2 % (36.0-48.0); MEAN CORPUSCULAR HEMOGLOBIN 28.9 pg (28.0-32.0); RED CELL DISTRIBUTION WIDTH 14.6 % (11.6-14.6)
[2019-01-24 23:51] LABS: CHLORIDE 103 mEq/L (98-107)
[2019-01-25] LABS: PROTHROMBIN TIME 10.5 sec (9.6-11.0)
[2019-01-25] MEDS ORDERED: ACETAMINOPHEN 500MG TABLET PO ONE (01:00)
[2019-01-25 01:51] LABS: CLARITY URINE CLEAR (CLEAR); COLOR URINE YELLOW (YELLOW); KETONES URINE NEGATIVE (NEGATIVE); LEUKOCYTE ESTERASE URINE NEGATIVE (NEGATIVE); NITRITE URINE NEGATIVE (NEGATIVE); OCCULT BLOOD URINE NEGATIVE (NEGATIVE); PH URINE 7.5 (4.5-8.0); PROTEIN URINE NEGATIVE (NEGATIVE); SPECIFIC GRAVITY URINE 1.005 (1.005-1.030); UROBILINOGEN URINE 0.2 E.U./dL (0.2-1.0)
[2019-01-25 02:20] LABS: PLATELET 259 x1000/uL (130-400)
[2019-01-25 02:21] LABS: MEAN PLATELET VOLUME 7.6 fl (7.4-10.4)
[2019-01-25 02:37] LABS: PLATELET ESTIMATE NORMAL
[2019-01-25 03:40] VITALS: BP 161/80
[2019-01-25 04:08] VITALS: BP 161/80
[2019-01-25] MEDS ORDERED: BUDESONIDE 0.5MG/2ML NEB HHN SCH ×2 (04:30→09:00)
[2019-01-25] MEDS ORDERED: MORPHINE SULFATE 2 MG/ML CPJ (NOT FOR IM USE) IV SCH (04:30)
[2019-01-25 08:00] VITALS: BP 134/65
[2019-01-25] MEDS: ENOXAPARIN 40MG/0.4ML SYR SUBCUT SCH (09:37)
[2019-01-25] MEDS: IPRATROPIUM/ALBUTEROL 0.5-3(2.5)MG/3ML NEB HHN SCH ×4 (09:47→20:22)
[2019-01-25 12:00] VITALS: BP 113/50
[2019-01-25] MEDS ORDERED: AMLODIPINE 5MG TABLET PO SCH (12:15)
[2019-01-25] MEDS ORDERED: ACETAMINOPHEN 325MG TABLET PO PRN (12:15)
[2019-01-25] MEDS ORDERED: BENAZEPRIL 10MG TABLET PO SCH (12:15)
[2019-01-25] MEDS ORDERED: POLYETHYLENE GLYCOL 3350 (17GM) 1 DOSE PACK PO SCH (12:15)
[2019-01-25] MEDS: FAMOTIDINE 20MG TABLET PO SCH (13:21)
[2019-01-25 14:00] VITALS: BP 133/69
[2019-01-25] MEDS: HYDROCODONE/ACETAMINOPHEN 5/325MG TABLET PO PRN (14:07)
[2019-01-25 14:55] LABS: BG BASE EXCESS -3.4 mmol/L (-2.0-2.0); BG CARBOXYHEMOGLOBIN 0.6 % (0.5-1.5); BG DEOXYHEMOGLOBIN 2.7 % (0.0-5.0); BG FRACTION INSPIRED OXYGEN 28; BG HCO3 ACT 18.9 mmol/L (22.0-26.0); BG METHEMOGLOBIN 0.4 % (0.0-1.5); BG OXYGEN SATURATION 97.3 % (92.0-98.5); BG OXYHEMOGLOBIN 96.3 % (94.0-97.0); BG PH 7.463 (7.350-7.450); BG SAMPLE SITE RIGHT RADIAL; BG TOTAL HEMOGLOBIN 13.4 g/dL (12.0-18.0); BG VENT MODE NASAL CANNULA
[2019-01-25 16:00] VITALS: BP 133/68
[2019-01-25] MEDS ORDERED: METHYLPREDNISOLONE SOD SUCC 40 MG/ML VIAL IV SCH (17:00)
[2019-01-25] MEDS ORDERED: FAMOTIDINE 20MG TABLET PO SCH (21:00)
[2019-01-25] MEDS: MONTELUKAST SODIUM 10MG TABLET PO SCH (22:59)
[2019-01-25] MEDS: GUAIFENESIN 600MG ER TABLET PO SCH (22:59)
[2019-01-25] MEDS: TEMAZEPAM 15MG CAPSULE PO PRN (23:23)
[2019-01-26] MEDS: IPRATROPIUM/ALBUTEROL 0.5-3(2.5)MG/3ML NEB HHN SCH ×5 (00:52→20:52)
[2019-01-26] MEDS: BUDESONIDE 0.5MG/2ML NEB HHN SCH ×3 (01:03→20:52)
[2019-01-26 08:00] VITALS: BP 161/75
[2019-01-26] MEDS: POLYETHYLENE GLYCOL 3350 (17GM) 1 DOSE PACK PO SCH (09:00)
[2019-01-26] MEDS: AMLODIPINE 5MG TABLET PO SCH (09:14)
[2019-01-26] MEDS: ENOXAPARIN 40MG/0.4ML SYR SUBCUT SCH (09:14)
[2019-01-26] MEDS: FAMOTIDINE 20MG TABLET PO SCH (09:14)
[2019-01-26] MEDS: GUAIFENESIN 600MG ER TABLET PO SCH ×4 (09:15→21:18)
[2019-01-26] MEDS: BENAZEPRIL 10MG TABLET PO SCH (09:15)
[2019-01-26] MEDS: METHYLPREDNISOLONE SOD SUCC 40 MG/ML VIAL IV SCH ×2 (09:16→21:18)
[2019-01-26] MEDS: HYDROCODONE/ACETAMINOPHEN 5/325MG TABLET PO PRN ×2 (09:44→21:28)
[2019-01-26 12:00] VITALS: BP 144/75
[2019-01-26 16:00] VITALS: BP 159/91
[2019-01-26] MEDS: ACETYLCYSTEINE 100MG/ML 10% VIAL 4ML INH SCH (17:22)
[2019-01-26 20:00] VITALS: BP 141/67
[2019-01-26] MEDS: MONTELUKAST SODIUM 10MG TABLET PO SCH (21:17)
[2019-01-26] MEDS: TEMAZEPAM 15MG CAPSULE PO PRN (21:17)
[2019-01-27] MEDS: IPRATROPIUM/ALBUTEROL 0.5-3(2.5)MG/3ML NEB HHN SCH ×4 (00:28→14:45)
[2019-01-27] MEDS: ACETYLCYSTEINE 100MG/ML 10% VIAL 4ML INH SCH ×3 (00:28→14:45)
[2019-01-27 04:00] VITALS: BP 140/73
[2019-01-27 07:18] LABS: CHLORIDE 100 mEq/L (98-107)
[2019-01-27 08:00] VITALS: BP 170/79
[2019-01-27] MEDS ORDERED: SODIUM CHLORIDE 0.9% 250 ML IV ONE (08:00)
[2019-01-27] MEDS ORDERED: MORPHINE SULFATE 2 MG/ML CPJ (NOT FOR IM USE) IV NR (08:00)
[2019-01-27] MEDS ORDERED: TEMAZEPAM 15MG CAPSULE PO PRN (08:15)
[2019-01-27] MEDS ORDERED: ONDANSETRON HCL 4MG TABLET PO PRN (08:15)
[2019-01-27] MEDS: BENAZEPRIL 10MG TABLET PO SCH (08:19)
[2019-01-27] MEDS: BUDESONIDE 0.5MG/2ML NEB HHN SCH (08:19)
[2019-01-27] MEDS: FAMOTIDINE 20MG TABLET PO SCH (08:20)
[2019-01-27] MEDS: ENOXAPARIN 40MG/0.4ML SYR SUBCUT SCH (08:20)
[2019-01-27] MEDS: GUAIFENESIN 600MG ER TABLET PO SCH (08:20)
[2019-01-27] MEDS: AMLODIPINE 5MG TABLET PO SCH (08:20)
[2019-01-27] MEDS: POLYETHYLENE GLYCOL 3350 (17GM) 1 DOSE PACK PO SCH (08:30)
[2019-01-27] MEDS ORDERED: ASPIRIN 81MG EC TABLET PO SCH (09:00)
[2019-01-27] MEDS ORDERED: ARFORMOTEROL TARTRATE 15MCG/2ML NEB NEB SCH (09:00)
[2019-01-27 11:09] LABS: BASOPHILS % 0.1 % (0.0-2.0); HEMATOCRIT. 39.4 % (36.0-48.0); HEMOGLOBIN. 13.1 g/dL (12.0-16.0); LYMPHOCYTES % 11.9 % (20.0-50.0); MEAN CORPUSCULAR HEMOGLOBIN 28.7 pg (28.0-32.0); MEAN PLATELET VOLUME 7.3 fl (7.4-10.4); MONOCYTES % 7.6 % (2.0-8.0); NEUTROPHILS % 80.4 % (40.0-76.0); PLATELET 286 x1000/uL (130-400); RED BLOOD CELL COUNT 4.58 mill/uL (4.2-5.4); RED CELL DISTRIBUTION WIDTH 14.3 % (11.6-14.6)
[2019-01-27 11:27] LABS: CHLORIDE 101 mEq/L (98-107)
[2019-01-27 12:00] VITALS: BP 133/64
[2019-01-27 13:44] VITALS: BP 148/75
[2019-01-27 14:11] VITALS: BP 147/78
[2019-01-27] MEDS: HYDROCODONE/ACETAMINOPHEN 5/325MG TABLET PO PRN (14:11)
[2019-01-27] MEDS: METHYLPREDNISOLONE SOD SUCC 40 MG/ML VIAL IV SCH (14:11)
[2019-01-27] MEDS ORDERED: TRAZODONE HCL 50MG TABLET PO SCH (17:00)
[2019-01-31 06:11] LABS: A/G RATIO 0.8 (0.7-1.7); ALBUMIN 3.4 g/dL (2.9-4.4); ALPHA-1-GLOBULIN 0.3 g/dL (0.0-0.4); ALPHA-2-GLOBULIN 1.3 g/dL (0.4-1.0); BETA GLOBULIN 1.2 g/dL (0.7-1.3); GAMMA GLOBULINS 1.7 g/dL (0.4-1.8); GLOBULIN TOTAL 4.5 g/dL (2.2-3.9); M-SPIKE Not Observed g/dL (Not Observed); TOTAL PROTEIN SERUM 7.9 g/dL (6.0-8.5)
== END 2019-01-27 16:19 | disposition home or self-care (01) | DRG 871 ==
LOC: ER 19:33 → 8WST 01-25 00:22 → EDBEDREQSVC 01-25 00:26 → EDBEDREQ 01-25 00:26 → EDBEDREQTM 01-25 00:26 → EDBEDREQDT 01-25 00:26 → ENRESERV 01-25 00:56
PROVIDERS: ADMIT Internal Medicine Geriatric Medicine; ATTEND Internal Medicine Geriatric Medicine
DX: A41.9 Sepsis, unspecified organism (principal); J96.20 Acute and chronic respiratory failure, unspecified whether with hypoxia or hypercapnia; J44.1 Chronic obstructive pulmonary disease with (acute) exacerbation; I50.32 Chronic diastolic (congestive) heart failure; E22.2 Syndrome of inappropriate secretion of antidiuretic hormone; R65.20 Severe sepsis without septic shock; B18.2 Chronic viral hepatitis C; F32.9 Major depressive disorder, single episode, unspecified; E11.9 Type 2 diabetes mellitus without complications; E88.09 Other disorders of plasma-protein metabolism, not elsewhere classified; F17.210 Nicotine dependence, cigarettes, uncomplicated; F41.1 Generalized anxiety disorder; G89.4 Chronic pain syndrome; I11.0 Hypertensive heart disease with heart failure; K21.9 Gastro-esophageal reflux disease without esophagitis; K59.09 Other constipation; R91.1 Solitary pulmonary nodule; M48.02 Spinal stenosis, cervical region; M48.061 Spinal stenosis, lumbar region without neurogenic claudication; M54.12 Radiculopathy, cervical region; M54.16 Radiculopathy, lumbar region; Z79.51 Long term (current) use of inhaled steroids; Z79.899 Other long term (current) drug therapy; Z99.81 Dependence on supplemental oxygen; Z79.82 Long term (current) use of aspirin; Z88.1 Allergy status to other antibiotic agents; Z71.6 Tobacco abuse counseling
CPT/HCPCS: 36415; 36600; 71045; 71250; 80048; 81003; 82375; 82805; 83605; 83880; 84145; 84155; 84165; 84484; 87804; 93005; 93306; 94640; 97162; 99291; C1893; J0696; J1650; J2270; J2920; J3490; J7030; J7060; J7512; J7608; J7611; J7620; J7626